=== PATIENT | male | born 1950 | race Two or more races ===

== ENCOUNTER 2025-01-20 17:14 | Inpatient (IN) | payer OTHER, MEDICAID ==
[~2025-01-20] VITALS: Ht 175.3 cm; Wt 52.6 kg
[2025-01-20] MEDS: IV NS 0.9% 1,000 ML BAG IV ONE (17:40)
[2025-01-20 17:52] LABS: PLATELET COUNT (AUTO) 179 K/uL (150-450); RED BLOOD CELL COUNT(AUTO) 3.91 MIL/uL (4.5-6.0); RED CELL DISTRIBUTION WIDTH 18.0 % (11.5-15.0); WHITE BLOOD COUNT (AUTO) 4.0 K/uL (4.3-11.0)
[2025-01-20 17:58] LABS: CALCIUM, SERUM 7.5 mg/dL (8.5-10.1); CREATININE 0.9 mg/dL (0.6-1.3); SODIUM SERUM 121 mmol/L (136-145); UREA NITROGEN, BLOOD 14 mg/dL (7-18)
[2025-01-20] MEDS: CEFEPIME 1 GM in IV D5W 50 ML IV ONE (18:00)
[2025-01-20 18:02] LABS: INR 1.82 (0.91-1.10)
[2025-01-20 18:07] LABS: LACTIC ACID 2.9 mmol/L (0.4-2.0)
[2025-01-20 18:13] LABS: ASPARTATE AMINOTRANSFERASE 691 U/L (15-37); TOTAL PROTEIN, SERUM 5.7 g/dL (6.4-8.2)
[2025-01-20] MEDS ORDERED: BENZ-13 PO (18:55)
[2025-01-20] MEDS ORDERED: FLUT16SP16 BNOSTRILS (18:55)
[2025-01-20] MEDS ORDERED: ATOR40TA PO (18:55)
[2025-01-20] MEDS ORDERED: LATA7.5D EACHEYE (18:55)
[2025-01-20] MEDS ORDERED: PETR113O TP (18:55)
[2025-01-20] MEDS ORDERED: BENZ1LOZ58 PO (18:55)
[2025-01-20] MEDS ORDERED: ALLA266C2 TP (18:55)
[2025-01-20] MEDS ORDERED: PHEN26CR2 TP (18:55)
[2025-01-20] MEDS ORDERED: ONDA4TAB5 PO (18:55)
[2025-01-20] MEDS ORDERED: AMIN30LI66 PO (18:55)
[2025-01-20] MEDS ORDERED: TIOT18CA3 IH (18:55)
[2025-01-20] MEDS ORDERED: BISA10SU11 RC (18:55)
[2025-01-20] MEDS ORDERED: ZINC50TA69 PO (18:55)
[2025-01-20] MEDS ORDERED: DABI150C PO (18:55)
[2025-01-20] MEDS ORDERED: TAMS-12 PO (18:55)
[2025-01-20] MEDS ORDERED: MULT-213 PO (18:55)
[2025-01-20] MEDS ORDERED: ASPI-1169 PO (18:55)
[2025-01-20] MEDS ORDERED: ASCO500T21 PO (18:55)
[2025-01-20] MEDS ORDERED: INSU100V28 SQ (18:55)
[2025-01-20] MEDS ORDERED: METF-881 PO (18:55)
[2025-01-20] MEDS ORDERED: TEST1.257 TD (18:55)
[2025-01-20] MEDS ORDERED: HYDR-4076 PO (18:55)
[2025-01-20] MEDS ORDERED: SACU1TAB7 PO (18:55)
[2025-01-20] MEDS ORDERED: BLOO-668 IN (18:55)
[2025-01-20] MEDS ORDERED: CRAN400C PO (18:55)
[2025-01-20] MEDS ORDERED: INSU100V3 SQ (18:55)
[2025-01-20] MEDS ORDERED: MAGN400O6 PO (18:55)
[2025-01-20] MEDS ORDERED: FLUT1BLS13 IH (18:55)
[2025-01-20] MEDS ORDERED: CARV6.25 PO (18:55)
[2025-01-20] MEDS ORDERED: MECL-159 PO (18:55)
[2025-01-20] MEDS ORDERED: AMIO200T7 PO (18:55)
[2025-01-20] MEDS ORDERED: ALBU8.5H8 IH (18:55)
[2025-01-20] MEDS ORDERED: FURO-145 PO (18:55)
[2025-01-20] MEDS ORDERED: FINA5TAB11 PO (18:55)
[2025-01-20] MEDS ORDERED: INSU100I45 SQ ×2 (18:55)
[2025-01-20] MEDS ORDERED: PANT40TA2 PO (18:55)
[2025-01-20] MEDS ORDERED: GABA-532 PO (18:55)
[2025-01-20] MEDS ORDERED: DOCU100T2 PO (19:11)
[2025-01-20] MEDS: IV NS 0.9% 500 ML BAG IV ONE (19:15)
[2025-01-20] MEDS ORDERED: MAG HYDROX/AL HYDROX/SIMETH 30 ML UDC PO PRN (20:30)
[2025-01-20] MEDS ORDERED: MECLIZINE HCL 25 MG TABLET PO PRN (20:30)
[2025-01-20] MEDS ORDERED: BENZONATATE 100 MG CAPSULE PO PRN (20:30)
[2025-01-20] MEDS ORDERED: CEFEPIME 1 GM in IV D5W 50 ML IV SCH (20:30)
[2025-01-20] MEDS ORDERED: ONDANSETRON HCL/PF 4 MG/2 ML VIAL IVP PRN (20:30)
[2025-01-20] MEDS: CARVEDILOL 6.25 MG TABLET PO ONE (20:30)
[2025-01-20] MEDS ORDERED: MAGNESIUM HYDROXIDE 30 ML UDC PO PRN (20:30)
[2025-01-20 20:45] LABS: APPEARANCE,URINE CLEAR (CLEAR); BLOOD, URINE Moderate Ery/uL (NEGATIVE); LEUKOCYTE ESTERASE ,URINE Small (NEGATIVE); UGLUCOSE 250 MG/DL mg/dL (NEGATIVE)
[2025-01-20 20:47] LABS: NITRITE, URINE NEGATIVE (NEGATIVE)
[2025-01-20 20:48] LABS: ADD URINE CULTURE YES
[2025-01-20 20:49] LABS: SQUAMOUS EPITHELIAL CELL,UR Rare /HPF (None Seen)
[2025-01-20] MEDS ORDERED: DOSING PER PHARMACY-VANCOMYCIN IV XX PRN (21:00)
[2025-01-20] MEDS ORDERED: DEXTROSE 50%-WATER 50 ML DISP.SYRIN IV PRN (21:00)
[2025-01-20] MEDS ORDERED: ALBUTEROL FS 2.5 MG/3 ML VIAL.NEB NEB PRN (21:00)
[2025-01-20 21:30] VITALS: BP 94/58; TEMP 98.6; O2SAT 100
[2025-01-20] MEDS: BLOOD SUGAR DIAGNOSTIC 1 EACH STRIP IN SCH (22:00)
[2025-01-20 22:26] VITALS: BP 94/58; TEMP 98.6; O2SAT 100
[2025-01-20] MEDS: IV NS 0.9% 1,000 ML IV SCH (22:56)
[2025-01-20] MEDS: ATORVASTATIN 40 MG TABLET PO SCH (22:57)
[2025-01-20] MEDS: TAMSULOSIN 0.4 MG CAP.SR.24H PO SCH (22:57)
[2025-01-20] MEDS: VANCOMYCIN HCL 1.25 GM in IV D5W 250 ML IV ONE (22:59)
[2025-01-20] MEDS: LATANOPROST EYE DROP 0.005% 2.5 ML BOTTLE EACHEYE SCH (23:02)
[2025-01-20] MEDS: INSULIN REGULAR, HUMAN 100 UNIT/ML 3 ML VIAL SQ PRN (23:23)
[2025-01-21] VITALS (34 sets, daily range): BP systolic 72–122; BP diastolic 44–72; TEMP 97.6–98.3; O2SAT 95–100
[2025-01-21] MEDS: IPRATROPIUM NEB FS 0.5 MG/2.5 ML AMPUL.NEB NEB SCH (02:43)
[2025-01-21 06:44] LABS: PLATELET COUNT (AUTO) 147 K/uL (150-450); RED BLOOD CELL COUNT(AUTO) 3.33 MIL/uL (4.5-6.0); RED CELL DISTRIBUTION WIDTH 17.7 % (11.5-15.0); WHITE BLOOD COUNT (AUTO) 4.3 K/uL (4.3-11.0)
[2025-01-21 07:00] LABS: IRON, SERUM 28.0 ug/dl (50-175)
[2025-01-21 07:08] LABS: ASPARTATE AMINOTRANSFERASE 457.0 U/L (15-37); CALCIUM, SERUM 7.0 mg/dL (8.5-10.1); CREATININE 0.8 mg/dL (0.6-1.3); PHOSPHORUS 2.5 mg/dL (2.5-4.9); SODIUM SERUM 129.0 mmol/L (136-145); TOTAL PROTEIN, SERUM 4.7 g/dL (6.4-8.2); UREA NITROGEN, BLOOD 7.0 mg/dL (7-18)
[2025-01-21] MEDS: ALBUTEROL FS 2.5 MG/3 ML VIAL.NEB NEB SCH (07:57)
[2025-01-21] MEDS: PANTOPRAZOLE 40 MG TABLET.DR PO SCH (08:12)
[2025-01-21] MEDS ORDERED: TESTOSTERONE 1.25 GM TD SCH (09:00)
[2025-01-21] MEDS: AMIODARONE HCL 200 MG TABLET PO SCH (09:00)
[2025-01-21] MEDS: FUROSEMIDE 20 MG TABLET PO SCH (09:00)
[2025-01-21] MEDS: BUDESONIDE RESPULE INH 0.5 MG/2 ML AMPUL.NEB NEB SCH (09:00)
[2025-01-21] MEDS: CARVEDILOL 6.25 MG TABLET PO SCH (09:00)
[2025-01-21] MEDS ORDERED: Medication Not On Formulary EA (Cranberry 450 MG) PO SCH (09:00)
[2025-01-21] MEDS: ALBUMIN 25% 12.5 GM/50 ML BOTTLE IV ONE (09:51)
[2025-01-21] MEDS: VANCOMYCIN 750 MG in IV D5W 250 ML IV SCH (09:52)
[2025-01-21] MEDS: Magnesium 1GM/D5W 100ML PREMIX 100 ML IV SCH (10:17)
[2025-01-21] MEDS: FINASTERIDE (5 MG) 5 MG TABLET PO SCH (10:19)
[2025-01-21] MEDS: ASCORBIC ACID 500 MG TABLET PO SCH (10:19)
[2025-01-21] MEDS: DABIGATRAN ETEXILATE MESYLATE 75 MG CAPSULE PO SCH (10:19)
[2025-01-21] MEDS: MULTIVIT W/MINERALS 1 TAB TABLET PO SCH (10:19)
[2025-01-21] MEDS: MENTHOL/CETYLPYRD (CEPACOL) 1 LOZ LOZENGE PO PRN (10:20)
[2025-01-21] MEDS: DOCUSATE SODIUM 100 MG CAPSULE PO SCH (10:20)
[2025-01-21] MEDS: Z GUARD REMEDY 4 OZ OINT TP PRN (10:20)
[2025-01-21] MEDS: PROSOURCE / PROSTAT (PYXIS) 30 ML UDC PO SCH (10:21)
[2025-01-21] MEDS: ASPIRIN 81 MG TAB.CHEW PO SCH (10:21)
[2025-01-21] MEDS: ZINC SULFATE 220 MG CAPSULE PO SCH (10:32)
[2025-01-21] MEDS: ALBUMIN 25% 12.5 GM in PREMIX 1 EA IV ONE (10:34)
[2025-01-21] MEDS: IV NS 0.9% 1,000 ML IV SCH (10:40)
[2025-01-21] MEDS: ACETAMINOPHEN 325 MG TABLET PO PRN (10:46)
[2025-01-21] MEDS: MINERAL OIL 133 ML (PYXIS) 1 EA ENEMA RC ONE (11:58)
[2025-01-21] MEDS: POLYETHYLENE GLYCOL 3350 17 GM POWD.PACK PO SCH (12:00)
[2025-01-21] MEDS: ALBUMIN 25% 12.5 GM in PREMIX 1 EA IV STA (13:50)
[2025-01-21] MEDS: NOREPINEPHRINE 8 MG in IV D5W 242 ML IV PRN (14:00)
[2025-01-21 15:48] LABS: CALCIUM, SERUM 7.1 mg/dL (8.5-10.1); CREATININE 0.9 mg/dL (0.6-1.3); SODIUM SERUM 126.0 mmol/L (136-145); UREA NITROGEN, BLOOD 7.0 mg/dL (7-18)
[2025-01-21] MEDS: CEFEPIME 1 GM in IV D5W 50 ML IV SCH (17:41)
[2025-01-22] VITALS (64 sets, daily range): BP systolic 94–142; BP diastolic 47–76; TEMP 98–98.4; O2SAT 96–100
[2025-01-22 04:47] LABS: PLATELET COUNT (AUTO) 140 K/uL (150-450); RED BLOOD CELL COUNT(AUTO) 3.51 MIL/uL (4.5-6.0); RED CELL DISTRIBUTION WIDTH 17.9 % (11.5-15.0); WHITE BLOOD COUNT (AUTO) 4.2 K/uL (4.3-11.0)
[2025-01-22 04:51] LABS: ASPARTATE AMINOTRANSFERASE 322.0 U/L (15-37); TOTAL PROTEIN, SERUM 4.9 g/dL (6.4-8.2)
[2025-01-22 05:24] LABS: ASPARTATE AMINOTRANSFERASE 324.0 U/L (15-37); CALCIUM, SERUM 7.0 mg/dL (8.5-10.1); CREATININE 0.9 mg/dL (0.6-1.3); PHOSPHORUS 2.2 mg/dL (2.5-4.9); SODIUM SERUM 131.0 mmol/L (136-145); TOTAL PROTEIN, SERUM 5.0 g/dL (6.4-8.2); UREA NITROGEN, BLOOD 7.0 mg/dL (7-18)
[2025-01-22] MEDS: BUDESONIDE RESPULE INH 0.5 MG/2 ML AMPUL.NEB NEB SCH (08:30)
[2025-01-22] MEDS: POTASSIUM CHLORIDE 20 MEQ TAB.PRT.SR PO SCH (12:14)
[2025-01-22] MEDS: MIDODRINE HCL (5MG) 5 MG TABLET PO SCH (17:33)
[2025-01-22] MEDS: K PHOS NEUTRAL 250 MG TABLET PO ONE (17:33)
[2025-01-22] MEDS: FLUDROCORTISONE 0.1 MG TABLET PO SCH (17:39)
[2025-01-22] MEDS: HYDROCORTISONE SOD SUCCINATE 100 MG/2 ML VIAL IV SCH (17:41)
[2025-01-23] VITALS (32 sets, daily range): BP systolic 82–118; BP diastolic 49–76; TEMP 98.1–98.5; O2SAT 94–100
[2025-01-23 05:40] LABS: PLATELET COUNT (AUTO) 130 K/uL (150-450); RED BLOOD CELL COUNT(AUTO) 3.68 MIL/uL (4.5-6.0); RED CELL DISTRIBUTION WIDTH 18.0 % (11.5-15.0); WHITE BLOOD COUNT (AUTO) 3.3 K/uL (4.3-11.0)
[2025-01-23 06:00] LABS: ASPARTATE AMINOTRANSFERASE 227.0 U/L (15-37); CALCIUM, SERUM 7.5 mg/dL (8.5-10.1); CREATININE 0.9 mg/dL (0.6-1.3); SODIUM SERUM 132.0 mmol/L (136-145); TOTAL PROTEIN, SERUM 5.4 g/dL (6.4-8.2); UREA NITROGEN, BLOOD 4.0 mg/dL (7-18)
[2025-01-23 06:12] LABS: PHOSPHORUS 2.9 mg/dL (2.5-4.9)
[2025-01-23] MEDS ORDERED: IOHEXOL-300 100 ML VIAL IV ONE (11:59)
[2025-01-23] MEDS ORDERED: IV NS 0.9% 250 ML IV ONE (12:00)
[2025-01-23] MEDS: MAGNESIUM OXIDE 400 MG TABLET PO ONE (12:47)
[2025-01-23] MEDS ORDERED: IV NS 0.9% 1,000 ML IV PRN (16:25)
[2025-01-24] VITALS (27 sets, daily range): BP systolic 96–124; BP diastolic 44–102; TEMP 98–98.4; O2SAT 90–100
[2025-01-24 05:08] LABS: PLATELET COUNT (AUTO) 134 K/uL (150-450); RED BLOOD CELL COUNT(AUTO) 3.09 MIL/uL (4.5-6.0); RED CELL DISTRIBUTION WIDTH 17.9 % (11.5-15.0); WHITE BLOOD COUNT (AUTO) 6.9 K/uL (4.3-11.0)
[2025-01-24 05:22] LABS: ASPARTATE AMINOTRANSFERASE 133 U/L (15-37); CALCIUM, SERUM 7.4 mg/dL (8.5-10.1); CREATININE 0.9 mg/dL (0.6-1.3); SODIUM SERUM 137 mmol/L (136-145); TOTAL PROTEIN, SERUM 5.1 g/dL (6.4-8.2); UREA NITROGEN, BLOOD 7 mg/dL (7-18)
[2025-01-24 05:24] LABS: ASPARTATE AMINOTRANSFERASE 137.0 U/L (15-37); PHOSPHORUS 2.6 mg/dL (2.5-4.9); TOTAL PROTEIN, SERUM 5.1 g/dL (6.4-8.2)
[2025-01-24] MEDS: POTASSIUM CHLORIDE 20 MEQ TAB.PRT.SR PO ONE (06:34)
[2025-01-24 16:21] LABS: BLOOD, URINE 3+ Ery/uL (NEGATIVE); LEUKOCYTE ESTERASE ,URINE NEGATIVE (NEGATIVE); NITRITE, URINE NEGATIVE (NEGATIVE); UGLUCOSE NEGATIVE (NEGATIVE)
[2025-01-24 16:24] LABS: APPEARANCE,URINE SLIGHTLY HAZY (CLEAR)
[2025-01-24 16:33] LABS: ADD URINE CULTURE NO; SQUAMOUS EPITHELIAL CELL,UR 0-2 /HPF (None Seen)
[2025-01-24] MEDS ORDERED: HYDROCORTISONE SOD SUCCINATE 100 MG/2 ML VIAL IV SCH (21:00)
== END 2025-01-24 17:33 | disposition short-term general hospital (02) | DRG 640 ==
LOC: ER 17:28 → TELE 20:36 → MED 22:00 → ICU 01-21 13:37
PROVIDERS: ADMIT Registered Nurse Psychiatric/Mental Health; ATTEND Nurse Practitioner Family
DX: E86.0 Dehydration (principal); E43 Unspecified severe protein-calorie malnutrition; E87.1 Hypo-osmolality and hyponatremia; E87.20 Acidosis, unspecified; I95.9 Hypotension, unspecified; E11.65 Type 2 diabetes mellitus with hyperglycemia; D50.9 Iron deficiency anemia, unspecified; E86.1 Hypovolemia; E78.5 Hyperlipidemia, unspecified; E88.09 Other disorders of plasma-protein metabolism, not elsewhere classified; I11.0 Hypertensive heart disease with heart failure; I25.10 Atherosclerotic heart disease of native coronary artery without angina pectoris; I25.5 Ischemic cardiomyopathy; K21.9 Gastro-esophageal reflux disease without esophagitis; Z79.01 Long term (current) use of anticoagulants; Z79.899 Other long term (current) drug therapy; R74.01 Elevation of levels of liver transaminase levels; R91.8 Other nonspecific abnormal finding of lung field; N20.0 Calculus of kidney; I48.91 Unspecified atrial fibrillation; Z95.1 Presence of aortocoronary bypass graft; Z88.1 Allergy status to other antibiotic agents; Z88.2 Allergy status to sulfonamides; Z95.810 Presence of automatic (implantable) cardiac defibrillator; R33.9 Retention of urine, unspecified; K80.20 Calculus of gallbladder without cholecystitis without obstruction; K76.0 Fatty (change of) liver, not elsewhere classified; Z79.4 Long term (current) use of insulin; I50.9 Heart failure, unspecified; M21.372 Foot drop, left foot
CPT/HCPCS: 36415; 71045-TC; 71260-TC; 76705-TC; 80048-TC; 80053-TC; 80076-TC; 80202-TC; 81001; 82728-TC; 82962-TC; 83540-TC; 83605-TC; 83690-TC; 83735-TC; 83935-TC; 84100-TC; 84300-TC; 84443-TC; 84484-TC; 84550-TC; 85025-TC; 85730-TC; 87040-TC; 87081-TC; 87086-TC; 93307-TC; 94760-TC; 94799-TC; A4216; A4223; G0378; J0692; J1720; J1815; J3374; J3475; J7030; J7040; J7050; J7060; P9047; Q9967

== ENCOUNTER 2025-04-27 16:22 | Emergency (ER) | payer OTHER, MEDICAID ==
[~2025-04-27] VITALS: Ht 167.6 cm; Wt 45.8 kg
[~2025-04-27 16:22] MED LIST: ALBU8.5H8 IH; ALLA266C2 TP; AMIN30LI66 PO; AMIO200T7 PO; ASCO500T21 PO; ASPI-1169 PO; ATOR40TA PO; BENZ-13 PO; BENZ1LOZ58 PO; BISA10SU11 RC; BLOO-668 IN; CARV6.25 PO; CRAN400C PO; DABI150C PO; DOCU100T2 PO; FINA5TAB11 PO; FLUT16SP16 BNOSTRILS; FLUT1BLS13 IH; FURO-145 PO; GABA-532 PO; HYDR-4076 PO; INSU100I45 SQ; INSU100V28 SQ; INSU100V3 SQ; LATA7.5D EACHEYE; MAGN400O6 PO; MECL-159 PO; METF-881 PO; MULT-213 PO; ONDA4TAB5 PO; PANT40TA2 PO; PETR113O TP; PHEN26CR2 TP; SACU1TAB7 PO; TAMS-12 PO; TEST1.257 TD; TIOT18CA3 IH; ZINC50TA69 PO
[2025-04-27] MEDS ORDERED: DEXTROSE 50%-WATER 50 ML DISP.SYRIN ONE (16:37)
[2025-04-27] MEDS: DEXTROSE 50%-WATER 50 ML DISP.SYRIN IVP ONE (16:40)
[2025-04-27] MEDS ORDERED: CEFTRIAXONE 1GM BAG (ER ONLY) 50 ML IV ONE (16:42)
[2025-04-27] MEDS: CEFTRIAXONE 1GM BAG (ER ONLY) 50 ML IV ONE (16:52)
[2025-04-27 16:59] LABS: PLATELET COUNT (AUTO) 196 K/uL (150-450); RED BLOOD CELL COUNT(AUTO) 4.34 MIL/uL (4.5-6.0); RED CELL DISTRIBUTION WIDTH 17.6 % (11.5-15.0); WHITE BLOOD COUNT (AUTO) 6.5 K/uL (4.3-11.0)
[2025-04-27 17:12] LABS: CALCIUM, SERUM 7.2 mg/dL (8.5-10.1); CREATININE 0.8 mg/dL (0.6-1.3); SODIUM SERUM 127.0 mmol/L (136-145); UREA NITROGEN, BLOOD 12.0 mg/dL (7-18)
[2025-04-27 17:19] LABS: LACTIC ACID 0.7 mmol/L (0.4-2.0)
[2025-04-27 17:22] LABS: ASPARTATE AMINOTRANSFERASE 48.0 U/L (15-37); TOTAL PROTEIN, SERUM 6.5 g/dL (6.4-8.2)
[2025-04-27 17:26] LABS: INR 2.74 (0.91-1.10)
[2025-04-27] MEDS: IV NS 0.9% 1,000 ML BAG IV ONE (17:39)
[2025-04-27] MEDS ORDERED: AZITHROMYCIN 250 MG TABLET ONE (18:12)
[2025-04-27] MEDS: IV NS 0.9% 500 ML BAG IV ONE (18:17)
[2025-04-27] MEDS: AZITHROMYCIN 500 MG in IV D5W 250 ML IV ONE (18:18)
[2025-04-27] MEDS: AZITHROMYCIN 250 MG TABLET PO ONE (18:18)
[2025-04-27 20:40] VITALS: BP 130/76; TEMP 98.1; O2SAT 99
== END 2025-04-27 20:41 | disposition short-term general hospital (02) ==
LOC: ER 16:30
DX: J44.0 Chronic obstructive pulmonary disease with (acute) lower respiratory infection (principal); E11.649 Type 2 diabetes mellitus with hypoglycemia without coma; I25.10 Atherosclerotic heart disease of native coronary artery without angina pectoris; I11.9 Hypertensive heart disease without heart failure; I44.7 Left bundle-branch block, unspecified; Z88.6 Allergy status to analgesic agent; Z79.899 Other long term (current) drug therapy; Z88.2 Allergy status to sulfonamides; Z79.84 Long term (current) use of oral hypoglycemic drugs; Z88.1 Allergy status to other antibiotic agents; Z79.890 Hormone replacement therapy; Z79.82 Long term (current) use of aspirin; Z79.51 Long term (current) use of inhaled steroids; Z79.4 Long term (current) use of insulin; Z79.01 Long term (current) use of anticoagulants
CPT/HCPCS: 99285; 96365; 70450; 71045; 96361; 96375; 93005; 84145; 85025; 80048; 82550; 87040 ×2; 83605; 80076; 84484; 85730; 82962 ×2; J7030; J7040; A4223; J0696; 36415